=== PATIENT | male | born 1990 | race Caucasian/White ===

== ENCOUNTER 2023-10-08 22:13 | Emergency (ER) | payer BC ==
[~2023-10-08] VITALS: Ht 170.2 cm; Wt 88.0 kg
[2023-10-08 22:37] VITALS: O2SAT 99
[2023-10-09] MEDS: SODIUM CHLORIDE 0.9% 500 ML IV ONE (02:15)
[2023-10-09] MEDS: DIPHENHYDRAMINE 50MG/ML VIAL IV ONE (02:20)
[2023-10-09] MEDS: METHYLPREDNISOLONE SOD SUCC 125MG/2ML (ACT-O-VIAL) IV ONE (02:25)
[2023-10-09] MEDS: EPINEPHRINE 1:1000 1 MG/ML AMP INJ ONE (02:30)
[2023-10-09] MEDS ORDERED: FAMO-135 MT (03:22)
[2023-10-09] MEDS ORDERED: ACET-2708 MT (03:22)
[2023-10-09] MEDS ORDERED: P20 MT (03:22)
[2023-10-09] MEDS ORDERED: DIPH25TA62 MT (03:22)
[2023-10-09 03:30] VITALS: BP 119/75; PULSE 84; RESP 16; TEMP 36.61404; O2SAT 100
== END 2023-10-09 03:50 | disposition home or self-care (01) ==
LOC: ER 22:37
DX: L23.9 Allergic contact dermatitis, unspecified cause (principal)
CPT/HCPCS: 99284; 96361; 96374; 96375; J1200; J3490; J2919; J7040; Z7610 ×2